=== PATIENT | female | born 1960 | race Caucasian/White ===

== ENCOUNTER 2019-03-24 08:53 | Emergency (ER) | payer BC, OTHER ==
--- OUTSIDE RECORDS SUMMARY | 2019-03-24 08:55 | XMS REPORT ---
:1960 [facility] Address [address] [place] [address] [address] [place] [address] Care Team Providers Name Role Phone Unavailable Unavailable Unavailable Problems This patient has no known problems. Allergies, Adverse Reactions, Alerts This patient has no known allergies or adverse reactions. Medications This patient has no known medications.
--- OUTSIDE RECORDS SUMMARY | 2019-03-24 08:56 | XMS REPORT | Summary of Care ---
:1960 Author Organization [facility] [place] [address] Care Team Providers Name Role Phone Addi Hu MD Primary Care Provider Reason for Visit Reason Comments Injections Consult, Test & Treat (Routine) Status Reason Specialty Diagnoses / Referred By Referred To Procedures Contact Contact Authorized Orthopedic Surgery Diagnoses Bilat knee and hip Osvaldo Queen, Procedures UT OFFICE CONSULTATION NEW/ESTAB PATIENT 60 MIN NEW OFFICE VISIT 20 MD Christos Sewell MD [address] [facility] [address] [place] [phone] Phone: Fax: Encounter Details Date Type Department Care Team Description 10/20/2018 Office Visit [facility] Christos Ocasio, [facility] [address] [facility]. [address], [address] [place] [address] [place] [address] Allergies No Known Allergiesdocumented as of this encounter (statuses as of 10/20/2018) Medications Medication Sig Dispensed Refills Start Date End Date Status diclofenac (VOLTAREN) 75 TAKE 1 TABLET BY 0 02/18/2018 Active MG EC tablet MOUTH TWICE A DAY WITH MEALS SYNTHROID 200 MCG tablet TAKE 1 TABLET BY 1 04/24/2018 Active MOUTH EVERY DAY levothyroxine Take 200 mcg by 0 Active (SYNTHROID) 175 MCG mouth. tablet rosuvastatin (CRESTOR) 5 Take 5 mg by 0 Active MG tablet mouth. Ibuprofen-Famotidine Take 800 mg by 90 Tab 7 07/04/2018 Active (DUEXIS) 800-26.6 MG mouth 3 times TABS daily. docusate sodium (COLACE) TAKE 2 1 10/03/2018 Active 100 MG capsule CAPSULE(S) EVERY DAY BY ORAL ROUTE NEEDED FOR 90 DAYS. hydrocodone-acetaminophe TAKE 1 TABLET BY 0 10/03/2018 Active n (NORCO) 5-325 mg MOUTH EVERY 6 tablet HOURS NEEDED ibuprofen (MOTRIN) 800 TAKE 1 TABLET BY 0 10/03/2018 Active mg tablet MOUTH EVERY 8 HOURS NEEDED Hospital, Clinic, or Other Ordered Dose Route Frequency Start Date End Date Status Facility Administered Medication methylPREDNISolone acetate IX ONCE 10/20/2018 10/20/2018 Ended (DEPO-MEDROL) 40 MG/ML, lidocaine 1% (10 mg/mL), bupivacaine (MARCAINE) 0.25 %Indications: Primary osteoarthritis of both knees methylPREDNISolone acetate IX ONCE 10/20/2018 10/20/2018 Ended (DEPO-MEDROL) 40 MG/ML, lidocaine 1% (10 mg/mL), bupivacaine (MARCAINE) 0.25 %Indications: Primary osteoarthritis of both knees documented as of this encounter (statuses as of 10/20/2018) Active Problems No known active problemsdocumented as of this encounter (statuses as of 2018) Social History Tobacco Use Types Packs/Day Years Used Date Never Smoker Smokeless Tobacco: Never Used Alcohol Use Drinks/Week oz/Week Comments Yes Sex Assigned at Date Recorded Female 09/11/2018 4:23 PM CDT Job Start Date Occupation Industry Not on file Not on file Not on file Travel History Travel Start Travel End No recent travel history available. documented as of this encounter Last Filed Vital Signs Vital Sign Reading Time Taken Comments Blood Pressure - - Pulse - - Temperature - - Respiratory Rate - - Oxygen Saturation - - Inhaled Oxygen Concentration - - Weight 107.5 kg (237 lb) 10/20/2018 8:07 AM CDT Height 157.5 cm (5' 2") 10/20/2018 8:07 AM CDT Body Mass Index 43.35 10/20/2018 8:07 AM CDT documented in this encounter Progress Notes Christos Ocasio MD - 10/20/2018 8:00 AM CDTHistory of present illness: The patient returns for a recheck. She has severe osteoarthritis of theknees. She received a cortisone injection 4 months ago. This provided her with good temporary relief. She would like more injections today. Physical examination: Unchanged. Following sterile prep and drape, each knee was injected with lidocaine, Marcaine, and Depo-Medrol solution's. She tolerated the injection well. We can repeat the injection again in 3-4 months. She will contact me when she is ready for more. All of her questions were answered today. documented in this encounter Plan of Treatment Health Maintenance Due Date Last Done Comments COLON CANCER SCREENING: COLONOSCOPY 1960 MAMMOGRAM ANNUAL 1960 TETANUS SHOT (ADULT) 01/11/1975 BMI FOLLOW UP PLAN 01/11/1978 HEPATITIS C SCREENING 01/11/1978 HIV SCREENING 01/11/1978 CERVICAL CANCER SCREENING 3 YEAR FOLLOW UP 01/11/1981 FLU VACCINE > 6 MONTHS 09/15/2018 documented as of this encounter Results Not on filedocumented in this encounter Visit Diagnoses Diagnosis Primary osteoarthritis of both knees - Primary Primary localized osteoarthrosis, lower leg documented in this encounter Administered Medications Medication Order MAR Action Action Date Dose Rate Site methylPREDNISolone acetate Given by 10/20/2018 8:35 AM Right Knee (DEPO-MEDROL) 40 MG/ML, CDT lidocaine 1% (10 mg/mL), bupivacaine (MARCAINE) 0.25 % Intra-articular, ONCE, 1 dose, Leida 10/20/18 at 0815 methylPREDNISolone acetate Given by 10/20/2018 8:35 AM CDT Left Knee (DEPO-MEDROL) 40 MG/ML, lidocaine 1% (10 mg/mL), bupivacaine (MARCAINE) 0.25 % Intra-articular, ONCE, 1 dose, Leida 10/20/18 at 0815 documented in this encounter Insurance Payer Benefit Plan / Subscriber ID Effective Phone Address Type Group Dates [facility] xxxxxxxxxxxx 2017-Prese [address] SHIELD IN-AREA POS - [employer] [place] [id number] [place] [address] UNITED CHOICE/CHOICE xxxxxxxxx 2018-Prese [address] [address] PPO [employer] PLUS/[place] [address] documented as of this encounter
[2019-03-24] MEDS ORDERED: ALBUTEROL 2.5 MG/3 ML NEB SOL ONE (11:03)
[2019-03-24] MEDS ORDERED: levoFLOXacin 500 MG TAB ONE (11:03)
[2019-03-24] MEDS ORDERED: predniSONE 20 MG TAB ONE (11:03)
--- NOTE | 2019-03-24 11:05 | RAD REPORT ---
EXAM DESCRIPTION: RAD - Chest Pa And Lat (2 Views) - 03/24/2019 10:57 am CLINICAL HISTORY: COUGH Chest pain. COMPARISON: Chest Pa And Lat (2 Views) dated 07/08/2015; ABDOMEN 1 VIEW KUB dated 01/09/2015 FINDINGS: The lungs are clear. The heart is upper limit of normal in size. No displaced fractures. IMPRESSION: No acute or concerning finding suspected.
--- NOTE | 2019-03-24 12:30 | EDPHYS ---
Physician Documentation [facility] Sergio Name: Kisha Su Age: 59 yrs Sex: Female : 1960 Arrival Date: 03/24/2019 Time: 08:55 Bed 23 Private MD: ED Physician Jose R Aggarwal HPI: 03/24 12:26 This 59 yrs old Female presents to ER via Ambulatory with complaints of snw Cough, Sore Throat, Congestion, has traveled out of the country. 12:26 The patient or guardian reports airway noise, cough, flu symptoms, arthralgias, snw low-grade fever, myalgias, no appetite. Onset: The symptoms/episode began/occurred gradually, 3 day(s) ago. Severity of symptoms: At their worst the symptoms were moderate, severe. Associated signs and symptoms: Pertinent positives: nausea. The patient has experienced similar episodes in the past, multiple times. The patient has been recently seen by a physician: the patient's primary care provider, with similar presenting complaints, lab tests were done, was given a prescription for antibiotics. Historical: - Allergies: 09:44 No Known Allergies; iw - Home Meds: 09:46 Synthroid 200 mcg Oral tab 1 tab once daily [Active]; rosuvastatin 5 mg oral tab 1 tab iw once daily [Active]; sertraline 50 mg oral tab 1 tab once daily [Active]; Breo Ellipta inhalation inhalation [Active]; - PMHx: 09:46 Hyperlipidemia; Asthma; Hypothyroidism; iw - PSHx: 09:46 Hysterectomy; Cholecystectomy; vale knee; iw - Immunization history:: Adult Immunizations. - Coronavirus screen:: The patient has NOT traveled to [place], [place], or [place] in the past 14 days. Proceed with normal triage process as indicated. - Social history:: Smoking status: Patient denies any tobacco usage or history of. - Ebola Screening: : Patient negative for fever greater than or equal to 101.5 degrees Fahrenheit, and additional compatible Ebola Virus Disease symptoms. ROS: 10:40 Constitutional: Negative for fever, chills, and weight loss, Eyes: Negative for injury, snw pain, redness, and discharge. 10:40 Neck: Negative for injury, pain, and swelling, Cardiovascular: Negative for chest pain, palpitations, and edema. 10:40 Abdomen/GI: Negative for abdominal pain, nausea, vomiting, diarrhea, and constipation, Back: Negative for injury and pain, : Negative for injury, bleeding, discharge, and swelling, MS/Extremity: Negative for injury and deformity, Skin: Negative for injury, rash, and discoloration, Neuro: Negative for headache, weakness, numbness, tingling, and seizure, Psych: Negative for depression, anxiety, suicide ideation, homicidal ideation, and hallucinations. 10:40 ENT: Positive for nasal discharge, sinus congestion. 10:40 Respiratory: Positive for cough, shortness of breath, wheezing. Exam: 10:37 Constitutional: This is a well developed, well nourished patient who is awake, alert, snw and in no acute distress. Head/Face: Normocephalic, atraumatic. Eyes: Pupils equal round and reactive to light, extra-ocular motions intact. Lids and lashes normal. Conjunctiva and sclera are non-icteric and not injected. Cornea within normal limits. Periorbital areas with no swelling, redness, or edema. 10:37 Neck: Trachea midline, no thyromegaly or masses palpated, and no cervical lymphadenopathy. Supple, full range of motion without nuchal rigidity, or vertebral point tenderness. No Meningismus. Chest/axilla: Normal chest wall appearance and motion. Nontender with no deformity. No lesions are appreciated. Cardiovascular: Regular rate and rhythm with a normal S1 and S2. No gallops, murmurs, or rubs. Normal PMI, no JVD. No pulse deficits. Abdomen/GI: Soft, non-tender, with normal bowel sounds. No distension or tympany. No guarding or rebound. No evidence of tenderness throughout. Back: No spinal tenderness. No costovertebral tenderness. Full range of motion. Skin: Warm, dry with normal turgor. Normal color with no rashes, no lesions, and no evidence of cellulitis. MS/ Extremity: Pulses equal, no cyanosis. Neurovascular intact. Full, normal range of motion. Neuro: Awake and alert, GCS 15, oriented to person, place, time, and situation. Cranial nerves II-XII grossly intact. Motor strength 5/5 in all extremities. Sensory grossly intact. Cerebellar exam normal. Normal gait. Psych: Awake, alert, with orientation to person, place and time. Behavior, mood, and affect are within normal limits. 10:37 ENT: External ear(s): are unremarkable, Nose: Nasal mucosa: edematous, nasal drainage, that is clear, Mouth: is normal, Voice: is normal. 10:37 Respiratory: the patient does not display signs of respiratory distress, Respirations: shallow respirations, that is moderate, tachypnea, that is moderate, Breath sounds: wheezing: expiratory is heard diffusely. Vital Signs: 09:44 BP 168 / 87; Pulse 83; Resp 18; Temp 98.3; Pulse Ox 99% on R/A; Weight 106.59 kg; iw Height 5 ft. 1 in. (154.94 cm); 11:10 BP 124 / 69; Pulse 79; Resp 18; Pulse Ox 100% on Nebulizer Mask; aj1 09:44 Body Mass Index 44.40 (106.59 kg, 154.94 cm) iw MDM: 09:58 Patient medically screened. snw 12:11 Data reviewed: vital signs, nurses notes. Data interpreted: Pulse oximetry: on room air snw is 100 %. Interpretation: normal. Counseling: I had a detailed discussion with the patient and/or guardian regarding: the historical points, exam findings, and any diagnostic results supporting the discharge/admit diagnosis, lab results, radiology results, the need for outpatient follow up, to return to the emergency department if symptoms worsen or persist or if there are any questions or concerns that arise at home. Special discussion: Based on the history and exam findings, there is no indication for further emergent testing or inpatient evaluation. I discussed with the patient/guardian the need to see the primary care provider for further evaluation of the symptoms. I discussed with the patient/guardian the need to see the director of golf for further evaluation of the symptoms. 12:30 ED course: Pt with hx of asthma, multiple episodes of pneumonia, no evidence of snw pneumonia on x-ray today. Pt placed on amoxil 3 days ago but I feel her lung exam and hx necessitate a more broad spectrum abx for early pneumonia. 03/24 10:36 Order name: Flu; Complete Time: 11:46 snw 03/24 09:57 Order name: Chest Pa And Lat (2 Views) XRAY; Complete Time: 11:11 snw Administered Medications: 11:08 Drug: predniSONE 40 mg Route: PO; aj1 11:09 Drug: Albuterol 2.5 mg Route: Inhalation; aj1 11:09 Drug: LevaQUIN 500 mg Route: PO; aj1 Disposition: 18:18 Co-signature as Attending Physician, Jose R Aggarwal MD. ma2 Disposition: 03/24/19 12:29 Discharged to Home. Impression: Acute bronchitis, Asthma. - Condition is Stable. - Discharge Instructions: Acute Bronchitis, Adult, Asthma, Adult, Fever, Adult, Cough, Adult, Rehydration, Adult. - Prescriptions for Levaquin 500 mg Oral Tablet - take 1 tablet by ORAL route once daily for 7 days; 7 tablet. Tessalon Perles 100 mg Oral Capsule - take 1 capsule by ORAL route every 8 hours As needed; 15 capsule. Albuterol Sulfate 2.5 mg /3 mL (0.083 %) Inhalation Solution for Nebulization - inhale 1 unit by NEBULIZATION route every 6-8 hours As needed; 1 box. Prednisone 20 mg Oral Tablet - take 2 tablet by ORAL route once daily for 5 days; 10 tablet. - Work release form, Medication Reconciliation Form, Thank You Letter, Antibiotic Education, Prescription Opioid Use form. - Follow up: Emergency Department; When: As needed; Reason: Worsening of condition. Follow up: Private Physician; When: 2 - 3 days; Reason: Recheck today's complaints, Continuance of care, Re-evaluation by your physician. Signatures: Dispatcher [employer] Toya Ziegler RN RN aj1 María Wolf, IS PROJECT MANAGER-C IS PROJECT MANAGER-Csnw Dinorah Lazo RN RN Jose R Aggarwal MD MD ma2 Corrections: (The following items were deleted from the chart) 09:57 09:40 Coronavirus screen: The patient HAS traveled to [place], [place], or [place] in the past 14 days. The patient does NOT have a fever and/or cough. Proceed with normal triage procedures. 12:45 12:29 03/24/2019 12:29 Discharged to Home. Impression: Acute bronchitis; Asthma. aj1 Condition is Stable. Forms are Medication Reconciliation Form, Thank You Letter, Antibiotic Education, Prescription Opioid Use. Follow up: Emergency Department; When: As needed; Reason: Worsening of condition. Follow up: Private Physician; When: 2 - 3 days; Reason: Recheck today's complaints, Continuance of care, Re-evaluation by your physician. snw
--- NOTE | 2019-03-24 12:30 | ER ---
Nurse's Notes [facility] Sergio Name: Kisha Su Age: 59 yrs Sex: Female : 1960 Arrival Date: 03/24/2019 Time: 08:55 Bed 23 Private MD: Diagnosis: Acute bronchitis;Asthma Presentation: 03/24 09:40 Presenting complaint: Patient states: has been sick since last , was on a iw cruise since Mar 11 and came back last , cruise was to [place] , went to PCP on Wednesday was given steroid shot and started on amoxicillin on mar 22, has productive cough, body aches, no fever, flu/strep negative at PCP, pt did not travel to [place]. Transition of care: patient was not received from another setting of care. Onset of symptoms was March 2019. Risk Assessment: Do you want to hurt yourself or someone else? Patient reports no desire to harm self or others. Initial Sepsis Screen: Does the patient meet any 2 criteria? No. Patient's initial sepsis screen is negative. Does the patient have a suspected source of infection? No. Patient's initial sepsis screen is negative. Care prior to arrival: None. 09:40 Method Of Arrival: Ambulatory iw 09:40 Acuity: ERYN 3 iw Historical: - Allergies: 09:44 No Known Allergies; iw - Home Meds: 09:46 Synthroid 200 mcg Oral tab 1 tab once daily [Active]; rosuvastatin 5 mg oral tab 1 tab iw once daily [Active]; sertraline 50 mg oral tab 1 tab once daily [Active]; Breo Ellipta inhalation inhalation [Active]; - PMHx: 09:46 Hyperlipidemia; Asthma; Hypothyroidism; iw - PSHx: 09:46 Hysterectomy; Cholecystectomy; vale knee; iw - Immunization history:: Adult Immunizations. - Coronavirus screen:: The patient has NOT traveled to [place], [place], or [place] in the past 14 days. Proceed with normal triage process as indicated. - Social history:: Smoking status: Patient denies any tobacco usage or history of. - Ebola Screening: : Patient negative for fever greater than or equal to 101.5 degrees Fahrenheit, and additional compatible Ebola Virus Disease symptoms. Screenin:09 Abuse screen: Denies threats or abuse. Denies injuries from another. Nutritional aj1 screening: No deficits noted. Tuberculosis screening: No symptoms or risk factors identified. 12:44 Fall Risk None identified. aj1 Assessment: 10:09 General: Appears in no apparent distress. comfortable, Behavior is calm, cooperative, aj1 appropriate for age. Pain: Denies pain. Neuro: Level of Consciousness is awake, alert, obeys commands, Oriented to person, place, time, situation. Cardiovascular: Patient's skin is warm and dry. Respiratory: Reports cough that is productive, Airway is patent Respiratory effort is even, unlabored, Respiratory pattern is regular, symmetrical, Breath sounds with wheezes bilaterally. GI: No signs and/or symptoms were reported involving the gastrointestinal system. : No signs and/or symptoms were reported regarding the genitourinary system. EENT: Throat is pink bilaterally. EENT: Reports nasal congestion nasal discharge. Derm: No signs and/or symptoms reported regarding the dermatologic system. Skin is pink, warm \T\ dry. normal. Musculoskeletal: No signs and/or symptoms reported regarding the musculoskeletal system. Circulation, motion, and sensation intact. 11:10 Reassessment: Patient appears in no apparent distress at this time. No changes from aj1 previously documented assessment. Patient and/or family updated on plan of care and expected duration. Pain level reassessed. Patient is alert, oriented x 3, equal unlabored respirations, skin warm/dry/pink. 12:10 Reassessment: Patient appears in no apparent distress at this time. No changes from aj1 previously documented assessment. Patient and/or family updated on plan of care and expected duration. Pain level reassessed. Patient is alert, oriented x 3, equal unlabored respirations, skin warm/dry/pink. Vital Signs: 09:44 BP 168 / 87; Pulse 83; Resp 18; Temp 98.3; Pulse Ox 99% on R/A; Weight 106.59 kg; iw Height 5 ft. 1 in. (154.94 cm); 11:10 BP 124 / 69; Pulse 79; Resp 18; Pulse Ox 100% on Nebulizer Mask; aj1 09:44 Body Mass Index 44.40 (106.59 kg, 154.94 cm) iw ED Course: 08:55 Patient arrived in ED. as 09:43 Triage completed. iw 09:44 Arm band placed on. iw 09:53 Toya Pino, RN is Primary Nurse. aj1 09:56 María Wolf FNP-C is PHCP. snw 09:56 Jose R Aggarwal MD is Attending Physician. snw 10:09 Patient has correct armband on for positive identification. Bed in low position. Call aj1 light in reach. Side rails up X 1. 10:09 No provider procedures requiring assistance completed. aj1 11:00 Chest Pa And Lat (2 Views) XRAY In Process Unspecified. EDMS 12:44 Patient did not have IV access during this emergency room visit. aj1 Administered Medications: 11:08 Drug: predniSONE 40 mg Route: PO; aj1 11:09 Drug: Albuterol 2.5 mg Route: Inhalation; aj1 11:09 Drug: LevaQUIN 500 mg Route: PO; aj1 Outcome: 12:29 Discharge ordered by . snw 12:44 Discharged to home ambulatory. aj1 12:44 Condition: good 12:44 Discharge instructions given to patient, Instructed on discharge instructions, follow up and referral plans. medication usage, Demonstrated understanding of instructions, follow-up care, medications, Prescriptions given X 4. 12:45 Patient left the ED. aj1 Signatures: Dispatcher [employer] Toya Ziegler RN RN aj María Wolf FNP-C MOLD PRESS OPERATOR-Lizzw Essence Vu as Dinorah Lazo RN RN Corrections: (The following items were deleted from the chart) 09:57 09:40 Coronavirus screen: The patient HAS traveled to [place], [place], or [place] in the iw past 14 days. The patient does NOT have a fever and/or cough. Proceed with normal triage procedures. iw 11:09 10:09 Respiratory: Reports cough that is productive, Airway is patent Respiratory aj1 effort is even, unlabored, Respiratory pattern is regular, symmetrical, Breath sounds are clear bilaterally. aj1
[2019-03-24 12:50] VITALS: TEMP 98.3
[2019-03-24 12:52] VITALS: BP 124/69; O2SAT 100
== END 2019-03-24 12:45 | disposition home or self-care (01) ==
LOC: ER 08:53
DX: J20.9 Acute bronchitis, unspecified (principal); J45.909 Unspecified asthma, uncomplicated; E03.9 Hypothyroidism, unspecified; E78.5 Hyperlipidemia, unspecified
CPT/HCPCS: 71046; 87804; 99284; J7512